=== PATIENT | male | born 1980 | race Two or more races ===

== ENCOUNTER 2016-09-22 05:56 | Emergency (ER) | payer OTHER ==
[~2016-09-22] VITALS: Ht 180.3 cm; Wt 95.3 kg
--- NOTE | 2016-09-22 06:05 | NUR ---
TO BED 8 A 35 YO MALE BIBSELF WITH C/O GENERAL BODY ACHES. PATIENT VERBALIZED, "THERE ARE PEOPLE TRYING TO HURT HIM." PATIENT DENIES ANY DRUG USE. PATIENT IS AAOX3, LOOKS ANXIOUS. VSS. HAVE DISORGANIZED THOUGHTS. INITIATED SAFETY MEASURES. REORIENTED TO HOSPITAL PROTOCOL. AWAITING FOR ER MD LOVE.
--- NOTE | 2016-09-22 06:06 | NUR ---
DR YIP AT BEDSIDE.
[2016-09-22] MEDS ORDERED: CEPH-570 PO (06:09)
[2016-09-22] MEDS ORDERED: OLANZAPINE 5 MG TABLET ONE (06:12)
--- NOTE | 2016-09-22 06:25 | NUR ---
MEDICATED PATIENT PER DR YIP'S ORDERS.
[2016-09-22] MEDS ORDERED: OLANZAPINE 5 MG TABLET PO ONE (06:30)
[2016-09-22 06:31] LABS: BASOPHILS % (AUTO) 0.5 % (0.0-2.0); EOSINOPHILS # (AUTO) 0.1 /CMM (0.0-0.7); EOSINOPHILS % (AUTO) 1.7 % (0.0-6.0); HEMATOCRIT 39 % (39-51); HEMOGLOBIN 13.7 g/dL (13.5-17.5); LYMPHOCYTES # (AUTO) 1.4 /CMM (0.8-4.8); LYMPHOCYTES % (AUTO) 18.4 % (20.0-44.0); MEAN CORPUSCULAR HEMOGLOBIN 30 PG (26.0-33.0); MEAN CORPUSCULAR HGB CONC 35 g/dl (31.0-36.0); MEAN CORPUSCULAR VOLUME 87 fL (80-96); MONOCYTES # (AUTO) 0.6 /CMM (0.1-1.30); MONOCYTES % (AUTO) 8.3 % (2.0-12.0); NEUTROPHILS # (AUTO) 5.6 /CMM (1.8-8.9); NEUTROPHILS % (AUTO) 71.1 % (43.0-81.0); PLATELET COUNT (AUTO) 229 /CMM (150-450); RDW COEFFICIENT OF VARIATION 13.1 (11.5-15.0); RED BLOOD CELL COUNT(AUTO) 4.51 MIL/uL (4.5-6.0); WHITE BLOOD COUNT (AUTO) 7.8 K/uL (4.3-11.0)
[2016-09-22 06:40] LABS: CALCIUM, SERUM 8.9 mg/dL (8.5-10.1); CARBON DIOXIDE 27 mmol/L (21-32); CHLORIDE 97 mmol/L (98-107); CREATININE 0.8 mg/dL (0.6-1.3); GLUCOSE 90 mg/dL (74-106); POTASSIUM 2.9 mmol/L (3.5-5.1); SODIUM SERUM 135 mmol/L (136-145); UREA NITROGEN, BLOOD 6 mg/dL (7-18)
[2016-09-22 06:52] LABS: ALANINE AMINOTRANSFERASE 45 U/L (12-78); ALKALINE PHOSPHATASE 60 U/L (46-116); ASPARTATE AMINOTRANSFERASE 32 U/L (15-37); BILIRUBIN,DIRECT 0.3 mg/dL (0.0-0.2); BILIRUBIN,TOTAL 1.2 mg/dL (0.2-1.0); TOTAL PROTEIN, SERUM 7.1 g/dL (6.4-8.2)
[2016-09-22 06:53] LABS: ACETAMINOPHEN 0 ug/ml (10-30); ALCOHOL, BLOOD < 3 mg/dL (0-0); SALICYLATE < 0.2 mg/dL (2.8-20.0)
[2016-09-22] MEDS ORDERED: POTASSIUM CHLORIDE 20 MEQ TAB.PRT.SR PO ONE ×2 (07:00→07:25)
--- NOTE | 2016-09-22 07:36 | NUR ---
urine provided by pt sent to lab
[2016-09-22 07:48] LABS: APPEARANCE,URINE CLEAR (CLEAR); BILIRUBIN,URINE NEGATIVE (NEGATIVE); BLOOD, URINE NEGATIVE Ery/uL (NEGATIVE); COLOR,URINE YELLOW (YELLOW); KETONES,URINE NEGATIVE (NEGATIVE); LEUKOCYTE ESTERASE ,URINE NEGATIVE (NEGATIVE); NITRITE, URINE NEGATIVE (NEGATIVE); PROTEIN,URINE NEGATIVE (NEGATIVE); UGLUCOSE NEGATIVE (NEGATIVE); UROBILINOGEN,URINE 0.2 EU/dL (0.2)
[2016-09-22 11:57] VITALS: BP 122/69
--- NOTE | 2016-09-22 11:58 | NUR ---
Patient discharged to home in stable condition. Written and verbal after care instructions given. Patient verbalizes understanding of instruction. AMBULATORY WITH STEADY GAIT. DENIES SI HI OR PARANOIA AT THIS TIME. NO FURTHER COMPLAINTS.
== END 2016-09-22 11:57 | disposition home or self-care (01) ==
LOC: ER 05:56
DX: F15.10 Other stimulant abuse, uncomplicated (principal)
CPT/HCPCS: 36415; 80048; 80076; 80305; 80329; 81001; 85025; 99284; A4606; G0480 ×2; Z7610; 81000-TC

== ENCOUNTER 2018-09-27 23:20 | Emergency (ER) | payer OTHER ==
[~2018-09-27] VITALS: Ht 180.3 cm; Wt 96.6 kg
[~2018-09-27 23:20] MED LIST: CEPH-570 PO
[2018-09-27 23:27] VITALS: BP 126/96
--- NOTE | 2018-09-28 00:26 | NUR ---
CALLED IN WR, NO ANSWER.
--- NOTE | 2018-09-28 00:55 | NUR ---
PATIENT NOT IN WAITING ROOM.
--- NOTE | 2018-09-28 01:40 | NUR ---
CALLED IN WR, NO ANSWER.
== END 2018-09-28 01:42 | disposition left against medical advice (07) ==
LOC: EDBD → ER 23:23
DX: Z53.21 Procedure and treatment not carried out due to patient leaving prior to being seen by health care provider (principal); L29.9 Pruritus, unspecified

== ENCOUNTER 2018-10-25 16:57 | Emergency (ER) | payer OTHER ==
[~2018-10-25] VITALS: Ht 180.3 cm; Wt 96.6 kg
--- NOTE | 2018-10-25 17:13 | NUR ---
BIBRA60, IN CUSTODY, NOTED FOR POSSIBLE ORAL INGESTION, UNKNOWN SUBSTANCE. 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 ABLE TO SPEAK, BUT NOT MAKING SENSE. ERRATIC BEHAVIOR. PT AOX1, TACHYCARDIC, RR EVEN AND UNLABORED ON RA. SKIN INTACT. VERBAL ORDER GIVEN BY MMI TEACHER FOR RESTRAINTS DUE TO PT BEING COMBATIVE. [employer] AT BEDSIDE. EVAL BY MMI TEACHER, AWAITING FURTHER ORDERS.
[2018-10-25] MEDS ORDERED: OLANZAPINE 10 MG VIAL IM ONE (17:21)
[2018-10-25] MEDS ORDERED: LORAZEPAM INJ 2 MG/ML VIAL ONE (17:21)
[2018-10-25] MEDS ORDERED: HALOPERIDOL LACTATE INJ 5 MG/ML VIAL ONE (17:25)
[2018-10-25 17:29] LABS: BASOPHILS # (AUTO) 0.1 /CMM (0.0-0.2); BASOPHILS % (AUTO) 0.6 % (0.0-2.0); HEMATOCRIT 37 % (39-51); HEMOGLOBIN 12.7 g/dL (13.5-17.5); LYMPHOCYTES # (AUTO) 1.2 /CMM (0.8-4.8); LYMPHOCYTES % (AUTO) 14.5 % (20.0-44.0); MEAN CORPUSCULAR HGB CONC 34 g/dl (31.0-36.0); MEAN CORPUSCULAR VOLUME 89 fL (80-96); MONOCYTES % (AUTO) 11.9 % (2.0-12.0); NEUTROPHILS # (AUTO) 6.1 /CMM (1.8-8.9); PLATELET COUNT (AUTO) 242 /CMM (150-450); RED BLOOD CELL COUNT(AUTO) 4.21 MIL/uL (4.5-6.0); WHITE BLOOD COUNT (AUTO) 8.5 K/uL (4.3-11.0)
[2018-10-25] MEDS ORDERED: OLANZAPINE 5 MG TABLET PO ONE (17:30)
[2018-10-25] MEDS ORDERED: HALOPERIDOL LACTATE INJ 5 MG/ML VIAL IM ONE (17:30)
[2018-10-25] MEDS ORDERED: LORAZEPAM INJ 2 MG/ML VIAL IV ONE (17:30)
[2018-10-25 17:43] LABS: ALANINE AMINOTRANSFERASE 136 U/L (12-78); ALBUMIN 3.7 g/dL (3.4-5.0); ALCOHOL, BLOOD < 3 mg/dL (0-0); ALKALINE PHOSPHATASE 63 U/L (46-116); ASPARTATE AMINOTRANSFERASE 116 U/L (15-37); BILIRUBIN,DIRECT 0.4 mg/dL (0.0-0.2); BILIRUBIN,TOTAL 1.4 mg/dL (0.2-1.0); CALCIUM, SERUM 8.3 mg/dL (8.5-10.1); CARBON DIOXIDE 27 mmol/L (21-32); CHLORIDE 101 mmol/L (98-107); CREATININE 0.9 mg/dL (0.6-1.3); GLUCOSE 99 mg/dL (74-106); SODIUM SERUM 139 mmol/L (136-145); TOTAL PROTEIN, SERUM 7.5 g/dL (6.4-8.2); UREA NITROGEN, BLOOD 16 mg/dL (7-18)
[2018-10-25 18:04] LABS: ACETAMINOPHEN < 2 ug/ml (10-30); SALICYLATE 2.1 mg/dL (2.8-20.0)
[2018-10-25 18:06] LABS: POTASSIUM 2.7 mmol/L (3.5-5.1)
[2018-10-25] MEDS ORDERED: POTASSIUM CL. PREMIX PERIPHER. 100 ML ONE ×2 (18:27→20:26)
[2018-10-25] MEDS ORDERED: IV NS 0.9% 1,000 ML BAG IV ONE (18:30)
[2018-10-25] MEDS: POTASSIUM CL. PREMIX PERIPHER. 50 ML IV SCH ×4 (18:35→22:10)
--- NOTE | 2018-10-25 19:00 | NUR ---
PT ASLEEP IN BED, RESPONDS TO PAINFUL STIMULI. VSS. CMS INTACT. WILL CONT TO MONITOR.
--- NOTE | 2018-10-25 21:56 | NUR ---
PT MAKING GRUNTING NOISES IN SLEEP. NO APPARENT DISTRESS NOTED. VSS. MOVED TO BED 15
--- NOTE | 2018-10-25 23:16 | NUR ---
POTASSIUM INFUSION COMPLETE. AZEEM WELL. PT STILL ASLEEP. VSS. WILL CONT TO MONITOR.
--- NOTE | 2018-10-25 23:26 | NUR ---
PT RESTING COMFORTABLY IN BED. VITAL SIGNS STABLE. SITTER AT BEDSIDE, WILL CONTINUE TO MONITOR
--- NOTE | 2018-10-25 23:35 | NUR ---
[facility] SPECIALIST AT BEDSIDE FOR BLOOD DRAW
[2018-10-25 23:55] LABS: CALCIUM, SERUM 8.2 mg/dL (8.5-10.1); CREATININE 0.8 mg/dL (0.6-1.3); POTASSIUM 3.1 mmol/L (3.5-5.1)
--- NOTE | 2018-10-26 01:34 | NUR ---
PT RESTING COMFORTABLY IN BED. VITAL SIGNS STABLE. SITTER AT BEDSIDE, WILL CONTINUE TO MONITOR
--- NOTE | 2018-10-26 04:40 | NUR ---
PT RESTING COMFORTABLY IN BED. VITAL SIGNS STABLE. SITTER AT BEDSIDE, WILL CONTINUE TO MONITOR
[2018-10-26 05:47] VITALS: BP 118/88
--- NOTE | 2018-10-26 05:48 | NUR ---
Patient given written and verbal discharge instructions. Patient verbalizes understanding of instructions. Patient is ambulatory with steady gait. Refuses offer of [facility] placement. Patient given list of available shelters in surrounding area.
== END 2018-10-26 05:54 | disposition home or self-care (01) ==
LOC: ER 17:02
DX: F15.10 Other stimulant abuse, uncomplicated (principal); E87.6 Hypokalemia; F23 Brief psychotic disorder; Z60.2 Problems related to living alone
CPT/HCPCS: 36415; 80048 ×2; 80076; 80307; 80329; 85025; 96365; 96366; 96372; 96375; 99285; J1630; J2060; J3480 ×2; J7030; 80305; G0480; J3490